=== PATIENT | female | born 1950 | race Caucasian/White ===

== ENCOUNTER → 2017-03-04 | Outpatient (CLI) | payer OTHER | LOC: BHFA 15:30 | PROVIDERS: ATTEND Internal Medicine Interventional Cardiology | DX: I71.9 Aortic aneurysm of unspecified site, without rupture (principal) ==

== ENCOUNTER 2017-07-10 19:04 | Emergency (ER) | payer OTHER ==
[2017-07-10] MEDS ORDERED: ONDANSETRON 4 MG/2 ML VIAL IVP ONE (20:13)
--- NOTE | 2017-07-10 20:13 | EDPHY ---
H & P Time Seen by Provider: 07/10/17 19:37 HPI/ROS: Chief complaint. Head pain HPI. 66-year-old female with chronic head and neck pain presents with headache for 1 week. She had a sore throat for 3 weeks. No fever. Her has been sick. She has been having cranial sacral work done this week which seems to help. She has had many of these adjustments. Her symptoms are similar to previous in that she has left lateral neck pain that goes up behind her ear and into the left temporoparietal area. Apparently her therapist is unavailable and she has recurrent pain in this area and so came to the emergency department. Her last met pill a robison was 2 days ago. She has no chest pain, fever, shortness of breath, abdominal pain. Fingers and toes there is no focal weakness or paresthesias to extremities. Patient took hydrocodone this morning with some relief but then the symptoms returned ROS Constitutional. no fever/chills, no weakness Eyes. no problems with vision ENT. no sore throat, no nasal drainage Cardiovascular. no chest pain Respiratory. no shortness of breath, no cough Abdominal. no abdominal pain, no nausea/vomiting, no diarrhea . no problems urinating MS. no calf pain/swelling, no neck/back pain, no joint pain Skin. no rash Lymph. no swollen glands Neuro. Left-sided headache Past Medical/Surgical History: Past medical history significant for an aortic aneurysm which is apparently stable and has been for being followed. 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 ENT, tympanic membranes normal. Pharynx without injection. Mucous membranes are moist Respiratory: There are no retractions, lungs are clear to auscultation. Cardiovascular: Regular rate and rhythm. Gastrointestinal: Abdomen is soft and nontender, no masses, bowel sounds normal. Neurological: Awake and alert, sensory and motor exams grossly normal. Speech is normal. Cranial nerves are normal. Skin: Warm and dry, no rashes. Musculoskeletal: Neck is supple nontender. Extremities symmetrical, full range of motion. Psychiatric: Patient is oriented X 3, there is no agitation. Constitutional: Initial Vital Signs Temperature (C) 36.6 C 07/10/17 19:07 Heart Rate 88 07/10/17 19:07 Respiratory Rate 20 07/10/17 19:07 Blood Pressure 173/92 H 07/10/17 19:07 O2 Sat (%) 98 07/10/17 19:07 O2 Delivery Mode Room Air Allergies/Adverse Reactions: epinephrine Allergy (Verified 11/13/13 12:51) meperidine HCl [From Demerol] Allergy (Verified 11/13/13 12:51) shrimp Allergy (Verified 07/10/17 19:12) Home Medications: Medication Instructions Recorded Hydrocodone/Acetaminophen [[place] 1 - 2 tab PO Q6H PRN #10 tab 11/13/13 5/325 (RX)] Levothyroxine Sodium [Synthroid] 300 mcg PO 11/13/13 Liothyronine Sodium [Cytomel] 11/13/13 Medical Decision Making Procedures: IV normal saline. Toradol, Phenergan, Benadryl IV ED Course/Re-evaluation: Re-evaluation 10:00 p.m. the patient is much improved. Residual left parietal pain but otherwise is neurologically Intact. Patient and I discussed treatment plan including criteria for return importance of follow-up and further evaluation. She expresses understanding and agreement. She has an appointment with her cranial sacral practitioner tomorrow Differential Diagnosis: It is a little bit unclear the etiology whether this is muscular low skeletal from the patient's cranial sutures or this is migraine. I did consider the vertebral artery dissection as she has had manipulation however she has had this similar symptoms many times in the past. She is otherwise neurologically - Data Points Medications Given: Discontinued Medications Diphenhydramine HCl (Benadryl Injection) 12.5 mg IVP EDNOW ONE Stop: 07/10/17 20:39 Last Admin: 07/10/17 20:48 Dose: 12.5 mg Sodium Chloride (Ns) 1,000 mls @ 0 mls/hr IV EDNOW ONE; Wide Open PRN Reason: Protocol Stop: 07/10/17 20:41 Last Admin: 07/10/17 20:47 Dose: 1,000 mls Ketorolac Tromethamine (Toradol) 30 mg IVP EDNOW ONE Stop: 07/10/17 20:39 Last Admin: 07/10/17 20:48 Dose: 30 mg Ondansetron HCl (Zofran) 4 mg IVP EDNOW ONE Stop: 07/10/17 20:14 Last Admin: 07/10/17 20:20 Dose: 4 mg Promethazine HCl (Phenergan) 12.5 mg IVP EDNOW ONE Stop: 07/10/17 20:41 Last Admin: 07/10/17 20:48 Dose: 12.5 mg Departure - Departure Disposition: Home, Routine, Self-Care Clinical Impression: Headache Qualifiers: Headache type: unspecified Headache chronicity pattern: acute headache Intractability: not intractable Qualified Code(s): R51 - Headache Condition: Good Instructions: Acute Headache (ED) Additional Instructions: Zofran half to 1 tablet every 4 hr as needed for nausea and vomiting. Hydrocodone 1/2 to 1 pill every 4-6 hours as needed for headache. Return tonight for worsening symptoms. Keep your appointment with your practitioner tomorrow morning. Referrals: KESHAV DUVALL [Other] - 1 day, if not improved
[2017-07-10] MEDS ORDERED: KETOROLAC 30 MG/1 ML SDV IVP ONE (20:38)
[2017-07-10] MEDS ORDERED: NS 1,000 ML IV ONE (20:40)
[2017-07-10] MEDS ORDERED: PROMETHAZINE HCL 25 MG/ML INJ IVP ONE (20:40)
[2017-07-10] MEDS ORDERED: HYDROCOD/APAP 5/325 PREPACK#6 BTL TAKEHOME ONE (22:11)
[2017-07-10] MEDS ORDERED: ONDANSETRON 4MG PREPACK#2 BTL TAKEHOME ONE (22:11)
[2017-07-10 22:24] VITALS: RESP 18
[2017-07-10 22:26] VITALS: BP 132/72; PULSE 74; TEMP 98.4; O2SAT 92
== END 2017-07-10 22:45 | disposition home or self-care (01) ==
DX: R51 Headache (principal); E86.9 Volume depletion, unspecified; Z87.891 Personal history of nicotine dependence
CPT/HCPCS: 96361; 96374; 96375; 99284; J1200; J1885; J2405; J2550

== ENCOUNTER → 2017-07-22 | Outpatient (CLI) | payer OTHER | LOC: BMCIMAGING 12:41 | PROVIDERS: ATTEND Midwife | DX: R10.2 Pelvic and perineal pain (principal); R93.8 Abnormal findings on diagnostic imaging of other specified body structures ==

== ENCOUNTER → 2017-07-30 | Outpatient (CLI) | payer OTHER | LOC: BHFA 14:45 | PROVIDERS: ATTEND Internal Medicine Cardiovascular Disease | DX: I72.9 Aneurysm of unspecified site (principal) ==

== ENCOUNTER 2017-07-31 03:53 | Emergency (ER) | payer OTHER ==
[2017-07-31] MEDS ORDERED: KETOROLAC 15 MG/1 ML SDV IVP ONE (04:15)
[2017-07-31] MEDS ORDERED: NS 1,000 ML IV ONE (04:15)
[2017-07-31] MEDS ORDERED: PROMETHAZINE HCL 25 MG/ML INJ IVP ONE (04:16)
--- NOTE | 2017-07-31 05:25 | EDPHY ---
H & P Stated Complaint: GREEN Time Seen by Provider: 07/31/17 04:13 HPI/ROS: Chief Complaint: Headache HPI: 66-year-old woman with a history of recurrent headaches is presenting with a headache that started about 12 hr ago. Patient had a similar headache 3 weeks ago was seen here in got relief with IV medications. She has had some nausea no vomiting. Does have a history of hypertension and has been taking her medications. Was recently started on metoprolol. No fevers or chills. Has got some neck stiffness which is similar to prior episodes as well. She does have an osteopathic that she sees that does feel a shins which usually helps. No vision or hearing changes. No numbness or weakness. Headache right now is about a 7/10. Is primarily in the left side. Consistent with prior migraine headaches. ROS: 10 point Review of Systems is negative except as noted in the HPI. PMH: Migraine headaches Social History: No smoking, no alcohol, no recreational drug use Family History: non-contributory Physical Exam: Gen: Awake, Alert, No Distress HEENT: Nose: no rhinorrhea Eyes: PERRLA, EOMI Mouth: Moist mucosa Neck: Supple, no JVD Chest: nontender, lungs clear to auscultation Heart: S1, S2 normal, no murmur Abd: Soft, non-tender, no guarding Back: no CVA tenderness, no midline tenderness Ext: no edema, non-tender Skin: no rash Neuro: CN II-XII intact, Sensation grossly intact, Strength 5/5 in bilateral upper and lower extremities - Personal History Current Tetanus/Diphtheria Vaccine: No Current Tetanus Diphtheria and Acellular Pertussis (TDAP): No - Medical/Surgical History Hx Asthma: No Hx Chronic Respiratory Disease: No Hx Diabetes: No Hx Cardiac Disease: Yes Hx Renal Disease: No Hx Cirrhosis: No Hx Alcoholism: No Hx HIV/AIDS: No Hx Splenectomy or Spleen Trauma: No Other PMH: medical aortic aneurysm, Hep A, encephalitis, possible menigitis 2003, [place] Fever, Bubbles in my Brain. surgery ectopic , tonsillectomy. - Social History Smoking Status: Former smoker Constitutional: Initial Vital Signs Heart Rate 88 07/31/17 04:03 Respiratory Rate 22 H 07/31/17 04:03 Blood Pressure 137/95 H 07/31/17 04:03 O2 Sat (%) 98 07/31/17 04:03 O2 Delivery Mode Room Air O2 (L/minute) 2 Allergies/Adverse Reactions: epinephrine Allergy (Verified 11/13/13 12:51) meperidine HCl [From Demerol] Allergy (Verified 11/13/13 12:51) shrimp Allergy (Verified 07/10/17 19:12) Home Medications: Medication Instructions Recorded Hydrocodone/Acetaminophen [[place] 1 - 2 tab PO Q6H PRN #10 tab 11/13/13 5/325 (RX)] Levothyroxine Sodium [Synthroid] 300 mcg PO 11/13/13 Liothyronine Sodium [Cytomel] 11/13/13 Ondansetron Odt [Zofran Odt] 4 mg PO Q4PRN PRN #5 tab 07/10/17 Pregnenolone, Micronized 07/31/17 Progesterone, Micronized 07/31/17 [Progesterone] Testosterone [Androderm 4 mg patch] 07/31/17 Medical Decision Making ED Course/Re-evaluation: 66-year-old woman with a history of chronic headaches presenting with worsening left-sided headache. She has a history of migraines and this feels the same. She is complaining some neck stiffness but again she says that this feels exactly the same as her prior headaches. I reviewed her prior chart from several weeks ago. At that time she got Benadryl Toradol IV fluids and Phenergan. Will re-dose the same medications and reassess. 0515 patient is now feeling significantly improved. Headache is much better. She is tolerating p. o.. Will discharge with follow-up referral to Neurology, she will return for worsening. There is no evidence of any acute intracranial bleeding or infection at this time. - Data Points Medications Given: Discontinued Medications Diphenhydramine HCl (Benadryl Injection) 12.5 mg IVP EDNOW ONE Stop: 07/31/17 04:17 Last Admin: 07/31/17 04:32 Dose: 12.5 mg Sodium Chloride (Ns) 1,000 mls @ 0 mls/hr IV ONCE ONE; Wide Open PRN Reason: Protocol Stop: 07/31/17 04:16 Last Admin: 07/31/17 04:30 Dose: 1,000 mls Ketorolac Tromethamine (Toradol) 30 mg IVP EDNOW ONE Stop: 07/31/17 04:16 Last Admin: 07/31/17 04:35 Dose: 30 mg Promethazine HCl (Phenergan) 12.5 mg IVP ONCE ONE Stop: 07/31/17 04:17 Last Admin: 07/31/17 04:33 Dose: 12.5 mg Departure - Departure Disposition: Home, Routine, Self-Care Clinical Impression: Headache Condition: Good Instructions: Acute Headache (ED) Additional Instructions: Follow up with Neurology in 2-3 days for further evaluation of your chronic headaches. Return to the emergency department for worsening headache, uncontrolled nausea vomiting, fevers, chills, or any other concerns. Referrals: Valente Sihdu MD [Medical Doctor] - As per Instructions
[2017-07-31 05:37] VITALS: BP 139/83; PULSE 78; RESP 18; TEMP 98.1; O2SAT 95
== END 2017-07-31 05:38 | disposition home or self-care (01) ==
DX: R51 Headache (principal); I10 Essential (primary) hypertension; E86.9 Volume depletion, unspecified; Z87.891 Personal history of nicotine dependence
CPT/HCPCS: 96361; 96374; 96375; 99284; J1200; J1885; J2550

== ENCOUNTER → 2017-09-26 | Outpatient (CLI) | payer OTHER | LOC: BMCIMAGING 14:57 | PROVIDERS: ATTEND Obstetrics & Gynecology | DX: N95.0 Postmenopausal bleeding (principal); R93.8 Abnormal findings on diagnostic imaging of other specified body structures; D25.9 Leiomyoma of uterus, unspecified; Z79.890 Hormone replacement therapy; Z90.721 Acquired absence of ovaries, unilateral ==

== ENCOUNTER → 2017-12-04 | Outpatient (CLI) | payer OTHER | LOC: BHFA 11:00 | PROVIDERS: ATTEND Internal Medicine Interventional Cardiology | DX: R07.9 Chest pain, unspecified (principal) ==

== ENCOUNTER → 2018-04-20 | Outpatient (CLI) | payer OTHER | LOC: BMCIMAGING 12:59 | PROVIDERS: ATTEND Family Medicine | DX: E21.5 Disorder of parathyroid gland, unspecified (principal) | CPT/HCPCS: 76536-PO ==

== ENCOUNTER → 2018-06-08 | Outpatient (CLI) | payer OTHER | LOC: FIMAGING 17:08 | PROVIDERS: ATTEND Family Medicine | DX: R05 Cough (principal); I77.810 Thoracic aortic ectasia ==

== ENCOUNTER → 2018-07-31 | Outpatient (CLI) | payer OTHER | LOC: BHFA 15:30 | PROVIDERS: ATTEND Internal Medicine Cardiovascular Disease | DX: I71.9 Aortic aneurysm of unspecified site, without rupture (principal) ==

== ENCOUNTER → 2018-09-30 | Outpatient (CLI) | payer OTHER | LOC: BMCIMAGING 15:15 | PROVIDERS: ATTEND Obstetrics & Gynecology | DX: N95.0 Postmenopausal bleeding (principal); D25.2 Subserosal leiomyoma of uterus; N88.8 Other specified noninflammatory disorders of cervix uteri ==